=== PATIENT | male | born 1950 | race Caucasian/White ===

== ENCOUNTER 2016-05-01 15:48 | Emergency (ER) | payer MEDICARE ==
[~2016-05-01] VITALS: Ht 180.3 cm; Wt 79.0 kg
[2016-05-01 15:55] VITALS: BP 142/79; PULSE 66; RESP 16; TEMP 98.2; O2SAT 99
--- NOTE | 2016-05-01 16:13 | PD ---
HPI Chief Complaint: Skin Problem Time Seen by Provider: 16:01 Travel History International Travel<30 days: No Contact w/Intl Traveler<30days: No Traveled to known affect area: No History of Present Illness HPI 66-year-old male here for evaluation of left foot and ankle swelling, and erythema. In January 2016 the patient underwent left ankle surgery and had hardware placed. In March of this year he developed an infection which required washout and 6 weeks of antibiotics. Both procedures were performed in [place]. The patient has been going to physical therapy, and over the last week patient has noted increasing swelling and redness to the left foot and ankle. He denies fevers or chills. No history of DVT or PE. No chest pain or dyspnea. He denies pain in his left foot or ankle. [facility] Social History Alcohol Use: Yes (social) Tobacco Use: No Allergies-Medications (Allergen,Severity, Reaction): Coded Allergies: No Known Allergies (Unverified , 05/01/16) Reported Meds & Prescriptions Reported Meds & Active Scripts Active Bactrim DS (Sulfamethoxazole-Trimethoprim) 800-160 Mg Tab 1 Tab PO BID Cipro (Ciprofloxacin HCl) 500 Mg Tab 500 Mg PO BID 10 Days Reported Cialis (Tadalafil) 5 Mg Tab 5 Mg PO DAILY Do not exceed 1 dose/day. Review of Systems Except as stated in HPI: all other systems reviewed are Neg Physical Exam Narrative GENERAL: Well-developed, well-nourished, comfortable, no acute distress. SKIN: Left foot and ankle with significant edema with overlying erythema and warmth, no red streaks, no crepitus. Well-healed surgical scars over left medial and lateral malleolus. HEAD: Atraumatic. Normocephalic. EYES: Pupils equal and round. No scleral icterus. No injection or drainage. ENT: Mucous membranes pink and moist. NECK: Trachea midline. No JVD. CARDIOVASCULAR: Regular rate and rhythm. Bilateral dorsalis pedis pulses are brisk and equal. RESPIRATORY: No accessory muscle use. Clear to auscultation. Breath sounds equal bilaterally. MUSCULOSKELETAL: Left foot and ankle with significant edema with skin exam as above. NEUROLOGICAL: Awake and alert. No obvious cranial nerve deficits. Motor grossly within normal limits. Normal speech. PSYCHIATRIC: Appropriate mood and affect; insight and judgment normal. Data Data Last Documented VS Vital Signs Date Time Temp Pulse Resp B/P Pulse Ox O2 Delivery O2 Flow Rate FiO2 05/01/16 18:57 98.3 66 18 132/72 99 05/01/16 16:27 Room Air Orders Complete Blood Count With Diff (05/01/16 16:08) Comprehensive Metabolic Panel (05/01/16 16:08) Prothrombin Time / Inr (Pt) (05/01/16 16:08) Act Partial Throm Time (Ptt) (05/01/16 16:08) Iv Access Insert/Monitor (05/01/16 16:08) Ecg Monitoring (05/01/16 16:08) Oximetry (05/01/16 16:08) Sodium Chloride 0.9% Flush (Ns Flush) (05/01/16 16:15) Blood Culture (05/01/16 16:08) Westergren Sedimentation Rate (05/01/16 16:08) Ankle, Complete (Lsx1hex) (05/01/16 ) Us Leg Venous Doppler (05/01/16 ) Vancomycin Inj (Vancomycin Inj) (05/01/16 17:15) Ciprofloxacin (Cipro) (05/01/16 18:30) Sulfamet-Trimeth Ds 800-160 Mg (Bactrim (05/01/16 18:30) Labs Laboratory Tests Test 05/01/16 16:15 White Blood Count 6.1 TH/MM3 Red Blood Count 3.97 MIL/MM3 Hemoglobin 12.6 GM/DL Hematocrit 37.3 % Mean Corpuscular Volume 94.0 FL Mean Corpuscular Hemoglobin 31.7 PG Mean Corpuscular Hemoglobin 33.7 % Concent Red Cell Distribution Width 13.3 % Platelet Count 222 TH/MM3 Mean Platelet Volume 8.4 FL Neutrophils (%) (Auto) 65.8 % Lymphocytes (%) (Auto) 23.8 % Monocytes (%) (Auto) 8.6 % Eosinophils (%) (Auto) 1.3 % Basophils (%) (Auto) 0.5 % Neutrophils # (Auto) 4.0 TH/MM3 Lymphocytes # (Auto) 1.5 TH/MM3 Monocytes # (Auto) 0.5 TH/MM3 Eosinophils # (Auto) 0.1 TH/MM3 Basophils # (Auto) 0.0 TH/MM3 CBC Comment DIFF FINAL Differential Comment Erythrocyte Sedimentation Rate 4 mm/hr Prothrombin Time 11.1 SEC Prothromb Time International 1.0 RATIO Ratio Activated Partial 24.8 SEC Thromboplast Time Sodium Level 141 MEQ/L Potassium Level 3.5 MEQ/L Chloride Level 104 MEQ/L Carbon Dioxide Level 30.5 MEQ/L Anion Gap 7 MEQ/L Blood Urea Nitrogen 15 MG/DL Creatinine 0.95 MG/DL Estimat Glomerular Filtration 79 ML/MIN Rate Random Glucose 97 MG/DL Calcium Level 8.3 MG/DL Total Bilirubin 0.5 MG/DL Aspartate Amino Transf 12 U/L (AST/SGOT) Alanine Aminotransferase 16 U/L (ALT/SGPT) Alkaline Phosphatase 95 U/L Total Protein 7.2 GM/DL Albumin 3.9 GM/DL [facility] Medical Decision Making Medical Screen Exam Complete: Yes Emergency Medical Condition: Yes Differential Diagnosis Cellulitis, osteomyelitis, necrotizing fasciitis unlikely, DVT, lymphedema, septic arthritis Narrative Course Vital signs show heart rate 66, blood pressure 142/79, pulse ox 99% on room air , oral temp of 98.2F. CBC shows WBC 6.1, hemoglobin 12.6, hematocrit 37.3, platelets 222. CMP is unremarkable. ESR is 4. Left ankle x-ray: Diffuse soft tissue swelling without fracture. Joint effusion. Left lower extremity duplex: Negative for DVT. Patient was given a dose of IV vancomycin. I was able to speak to the patient' s fuel conversion technician in [place] who knows the patient well. The patient initially had ORIF of the left ankle for nonunion trimalleolar fracture. He developed 2 separate infections in the left ankle, one was an abscess. Both of these infections ground gram-negative organisms that were sensitive to Bactrim and Cipro. At this point the patient does not wish to stay in the hospital. He has no pain in the foot or ankle. His clinical exam is consistent with a cellulitis. Plan is to start him on Bactrim and Cipro. His fuel conversion technician will keep in touch with him over the weekend. Patient was informed on when to return to the emergency department. He verbalizes understanding and agreement with plan. Diagnosis Primary Impression: Cellulitis of left foot Referrals: Traveling Auditor Additional Instructions: Take antibiotics as prescribed. Return to the emergency department for worsening symptoms or any other concerns. Follow-up with your fuel conversion technician when you are able to. Scripts Sulfamethoxazole-Trimethoprim (Bactrim DS)800-160 Mg Tab1 Tab PO BID #20 TAB Ref 0 Prov:Tor Danielle MD 05/01/16 Ciprofloxacin (Cipro)500 Mg Ovn055 Mg PO BID 10 Days Ref 0 Prov:Tor Danielle MD 05/01/16 Disposition: 01 DISCHARGE HOME Condition: Stable Tor Danielle MD May 01, 2016 16:13
[2016-05-01] MEDS ORDERED: SODIUM CHLORIDE 0.9% FLUSH 5 ML FLUSH IVF PRN (16:15)
[2016-05-01] MEDS ORDERED: CIAL5TAB PO (16:16)
[2016-05-01 16:27] VITALS: O2SAT 98
[2016-05-01 16:44] LABS: BASOPHIL % 0.5 % (0.0-2.0); EOSINOPHIL # 0.1 TH/MM3 (0-0.4); EOSINOPHIL % 1.3 % (0.0-4.0); HEMATOCRIT 37.3 % (39.0-51.0); HEMO FLAGS DIFF FINAL; LYMPH % 23.8 % (9.0-44.0); LYMPHOCYTE # 1.5 TH/MM3 (1.0-4.8); MEAN CORPUSCULAR HEMOGLOBIN 31.7 PG (27.0-34.0); MEAN CORPUSCULAR HGB CONC 33.7 % (32.0-36.0); MONO % 8.6 % (0.0-8.0); NEUT % 65.8 % (16.0-70.0); PLATELET COUNT 222 TH/MM3 (150-450); RED BLOOD COUNT 3.97 MIL/MM3 (4.50-5.90); RED CELL DISTRIBUTION WIDTH 13.3 % (11.6-17.2); WHITE BLOOD COUNT 6.1 TH/MM3 (4.0-11.0)
[2016-05-01 16:45] LABS: CHLORIDE 104 MEQ/L (98-107); POTASSIUM 3.5 MEQ/L (3.5-5.1); SODIUM (NA) 141 MEQ/L (136-145)
[2016-05-01 16:49] LABS: ANION GAP 7 MEQ/L (5-15); BICARBONATE 30.5 MEQ/L (21.0-32.0); BLOOD UREA NITROGEN 15 MG/DL (7-18)
[2016-05-01 16:50] LABS: APTT (PATIENT) 24.8 SEC (24.3-30.1); PROTHROMBIN TIME - PATIENT 11.1 SEC (9.8-11.6)
[2016-05-01 16:51] LABS: ALT (GPT) 16 U/L (12-78)
[2016-05-01 16:52] LABS: AST (GOT) 12 U/L (15-37); GLOMERULAR FILTRATION RATE 79 ML/MIN (>89)
[2016-05-01 16:53] LABS: TOTAL BILIRUBIN ADULT 0.5 MG/DL (0.2-1.0)
[2016-05-01 16:55] LABS: ALKALINE PHOSPHATASE 95 U/L (45-117)
--- NOTE | 2016-05-01 17:06 | RADHPO ---
EXAM DATE/TIME: 05/01/2016 16:39 [facility] COMPARISON: No previous studies available for comparison. INDICATIONS : Left ankle redness and swelling. MEDICAL HISTORY : Left ankle fracture SURGICAL HISTORY : ORIF left ankle ENCOUNTER: Initial ACUITY: 1 week PAIN SCORE: 0/10 LOCATION: Left ankle FINDINGS: Diffuse soft tissue swelling is present. There is previous internal fixation of a distal fibular frac ture. 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 There is no evidence of acute fracture. Bony mineralization is normal. CONCLUSION: 1. Diffuse soft tissue swelling without fracture. Joint effusion Aquiles Slaughter MD on May 01, 2016 at 17:02 Board Certified Radiologist. This report was verified electronically.
[2016-05-01] MEDS ORDERED: VANCOMYCIN INJ 1,000 MG in SODIUM CHLOR 0.9% 250 ML INJ 250 ML IV ONE (17:15)
--- NOTE | 2016-05-01 17:32 | RADHPO ---
EXAM DATE/TIME: 05/01/2016 22:11 [facility] COMPARISON: No previous studies available for comparison. INDICATIONS : Left leg swelling. MEDICAL HISTORY : Left ankle fracture. SURGICAL HISTORY : Left ankle repair. ENCOUNTER: Initial ACUITY: 1 week PAIN SCORE: 0/10 LOCATION: Left leg. TECHNIQUE: Venous ultrasound of the leg was performed from the inguinal ligament to the proximal calf. Real-juliann e, color Doppler and spectral tracing, compression and augmentation techniques were used. FINDINGS: There is normal compressibility of the deep venous system from the inguinal region to the proximal ca lf. No echogenic clot is seen in the lumen of the common femoral, femoral, popliteal, and posterior tibial veins. There is a normal response of the venous system to proximal and distal augmentation an d respiration. CONCLUSION: Negative for deep venous thrombosis. . Jim Dhillon MD FACR on May 01, 2016 at 17:31 Board Certified Radiologist. This report was verified electronically.
[2016-05-01] MEDS ORDERED: CIPR-9 PO (18:27)
[2016-05-01] MEDS ORDERED: BACT800T5 PO (18:27)
[2016-05-01] MEDS ORDERED: CIPROFLOXACIN 500 MG TAB PO ONE (18:30)
[2016-05-01] MEDS ORDERED: SULFAMETHOXAZOLE-TRIMETHOPRIM DS 800-160 MG TAB PO ONE (18:30)
[2016-05-01 18:57] VITALS: BP 132/72; TEMP 98.3
== END 2016-05-01 19:05 | disposition home or self-care (01) ==
LOC: PHED 15:48
DX: L03.116 Cellulitis of left lower limb (principal); M25.472 Effusion, left ankle; Z98.890 Other specified postprocedural states
CPT/HCPCS: 73610; 80053; 85025; 85610; 85652; 85730; 87040; 93971; 96365; 99284; J3370; J7050

== ENCOUNTER 2018-04-18 18:52 | Observation (INO) ==
--- NOTE | 2018-04-18 21:06 | XR ---
EXAM DATE: 04/18/2018 8:59 PM EST AGE/SEX: 68 years / Male INDICATIONS: Chest pain. CLINICAL DATA: This is the patient's initial encounter. Patient reports that signs and symptoms have been present for 1 day and indicates a pain score of 3/10. MEDICAL/SURGICAL HISTORY: None. None. COMPARISON: No prior exams available for comparison. FINDINGS: A single AP view of the chest demonstrates the lungs to be symmetrically aerated without evidence of mass, infiltrate or effusion. The cardiomediastinal contours are unremarkable. Osseous structures a re intact. CONCLUSION: The lungs are clear. Electronically signed by: Dario Stephens MD Board Certified Radiologist 04/18/2018 9:05 PM EST
[2018-04-18 21:09] LABS: Baso % (Auto) 0.7 % (0.0-2.0); Eos # (Auto) 0.1 th/mm3 (0.0-0.4); Eos % (Auto) 1.2 % (0.0-4.0); Hematocrit 42.5 % (39.0-51.0); Hemoglobin 13.8 gm/dL (13.0-17.0); Lymph # (Auto) 1.7 th/mm3 (1.0-4.8); Lymph % (Auto) 30.6 % (9.0-44.0); Mean Corpuscular HGB Conc 32.5 % (32.0-36.0); Mean Corpuscular Hemoglobin 31.8 pg (27.0-34.0); Mean Corpuscular Volume 97.7 fL (80.0-100.0); Mean Platelet Volume 9.2 fL (7.0-11.0); Mono # (Auto) 0.4 th/mm3 (0.0-0.9); Mono % (Auto) 7.7 % (0.0-8.0); Neut # (Auto) 3.5 th/mm3 (1.8-7.7); Neut % (Auto) 59.8 % (16.0-70.0); Platelet Count 227 th/mm3 (150-450); Red Blood Count 4.35 mil/mm3 (4.50-5.90); Red Cell Distribution Width 13.9 % (11.6-17.2); White Blood Count 5.7 th/mm3 (4.0-11.0)
[2018-04-18 21:17] LABS: Chloride 104 meq/L (98-107); Potassium 3.5 meq/L (3.5-5.1); Sodium 138 meq/L (136-145)
--- NOTE | 2018-04-18 21:19 | ED ---
HPI General Chief complaint: Arrhythmia / Palpitations Stated complaint: high heart rate on and off Time Seen by Provider: 04/18/18 20:39 Source: patient and family () Mode of arrival: ambulatory Limitations: no limitations History of Present Illness HPI narrative: 68-year-old male here with his for evaluation of intermittent episodes of palpitations, lightheadedness, dizziness that have been occurring over the last 2 months. Patient reports that these episodes have become more frequent and usually last for a couple of minutes. The last episode was [place] He does not ever syncopize during these episodes. He denies any known history of cardiac disease. Currently he feels well and is asymptomatic. He denies ever experiencing chest pain. No new medications. No fevers or recent illness. No paresthesias or motor deficits. At the time of my assessment the patient was on the cardiac monitor technician and he appears to be in a flutter. Patient denies history of atrial flutter or atrial fibrillation or any significant cardiac disease. Related Data Home Medications Medication Instructions Recorded Confirmed sildenafil (antihypertensive) 20 mg PO DAILY 04/18/18 04/18/18 Allergies Allergy/AdvReac Type Severity Reaction Status Date / Time No Known Allergies Allergy Verified 04/18/18 19:04 Review of Systems ROS: all other systems reviewed are negative ON LICENSE OF [facility] Medical History Medical History ACL graft tear (Acute) History of prostate disorder (Acute) Surgical History Surgical History History of ankle surgery (Acute) History of thyroid surgery (Acute) Social History Social History Substance History: No History of Abuse Second Hand Smoke Exposure: No Smoking Status: Never smoker How Often Do You Have a Drink Containing Alcohol: 2 to 3 times a week Recent Travel in [email or web address] within the Last 8 Weeks: No Recent Out of Country Travel within the Last 8 Weeks: No Immunization History Tetanus Immunization: <5 Years Exam Narrative Exam Narrative: GENERAL: Well-developed, well-nourished, pleasant, comfortable, no apparent distress. SKIN: Focused skin assessment warm/dry. HEAD: Atraumatic. Normocephalic. EYES: Pupils equal and round. No scleral icterus. No injection or drainage. ENT: No nasal bleeding or discharge. Mucous membranes pink and moist. NECK: Trachea midline. No JVD. CARDIOVASCULAR: Regular rate and rhythm. RESPIRATORY: No accessory muscle use. Clear to auscultation. Breath sounds equal bilaterally. GASTROINTESTINAL: Abdomen soft, non-tender, nondistended. MUSCULOSKELETAL: No obvious deformities. No clubbing. No cyanosis. No edema. NEUROLOGICAL: Awake and alert. No obvious cranial nerve deficits. Motor grossly within normal limits. Normal speech. PSYCHIATRIC: Appropriate mood and affect; insight and judgment normal. Course Initial Documented Vital Signs Temperature 98.2 F 04/18/18 19:05 Pulse Rate 65 04/18/18 19:05 Respiratory Rate 16 04/18/18 19:05 Blood Pressure 133/74 04/18/18 19:05 Pulse Oximetry 98 04/18/18 19:05 Last Documented Vital Signs Temperature 97.7 F 04/18/18 20:25 Pulse Rate 69 04/18/18 20:25 Respiratory Rate 20 04/18/18 20:25 Blood Pressure 144/86 H 04/18/18 20:25 Pulse Oximetry 100 04/18/18 20:25 Medical Decision Making MDM Narrative Medical decision making narrative: Vital signs reviewed. CBC and CMP are essentially unremarkable. TSH is 3.88. EKG shows atrial flutter with a rate of 68. The patient does not have any known history of cardiac disease, and he was certainly never diagnosed with A. fib or a flutter. I discussed this with the on-call supervisor winding department who recommended that the patient be admitted for an echocardiogram, telemetry monitoring, and cardiology evaluation for determination on how the patient should be anticoagulated. Case discussed with hospitalist Dr. Eagle who will admit the patient to the hospitalist service. Medical Screen Exam Complete: Yes Emergency Medical Condition: Yes Differential Diagnosis Differential Diagnosis: New onset atrial flutter/atrial fibrillation with intermittent episodes of rapid ventricular response, metabolic abnormality, hyperthyroid, PE less likely Lab Data Result diagrams: 04/18/18 20:25 04/18/18 20:25 Lab Results 04/18/18 04/18/18 04/18/18 Range/Units 20:25 20:25 20:25 CBC w Diff Auto diff final WBC 5.7 (4.0-11.0) th/mm3 RBC 4.35 L (4.50-5.90) mil/mm3 Hgb 13.8 (13.0-17.0) gm/dL Hct 42.5 (39.0-51.0) % MCV 97.7 (80.0-100.0) fL MCH 31.8 (27.0-34.0) pg MCHC 32.5 (32.0-36.0) % RDW 13.9 (11.6-17.2) % Plt Count 227 (150-450) th/mm3 MPV 9.2 (7.0-11.0) fL Neut % (Auto) 59.8 (16.0-70.0) % Lymph % (Auto) 30.6 (9.0-44.0) % Terry % (Auto) 7.7 (0.0-8.0) % Eos % (Auto) 1.2 (0.0-4.0) % Baso % (Auto) 0.7 (0.0-2.0) % Neut # (Auto) 3.5 (1.8-7.7) th/mm3 Lymph # (Auto) 1.7 (1.0-4.8) th/mm3 Terry # (Auto) 0.4 (0.0-0.9) th/mm3 Eos # (Auto) 0.1 (0.0-0.4) th/mm3 Baso # (Auto) 0.0 (0.0-0.2) th/mm3 WBC Differential . Differential Comment . PT 10.8 (9.8-11.6) sec INR 1.1 Ratio APTT 25.1 (23.4-31.7) sec Sodium 138 (136-145) meq/L Potassium 3.5 (3.5-5.1) meq/L Chloride 104 (98-107) meq/L Carbon Dioxide 29.9 (21.0-32.0) meq/L Anion Gap 4 L (5-15) meq/L BUN 16 (7-18) mg/dL Creatinine 1.10 (0.60-1.30) mg/dL Estimated GFR 66 L (>89) mL/min Random Glucose 94 (74-106) mg/dL Calcium 8.6 (8.5-10.1) mg/dL Total Bilirubin 0.7 (0.2-1.0) mg/dL AST 40 H (15-37) U/L ALT 43 (12-78) U/L Alkaline Phosphatase 63 (45-117) U/L Total Creatine Kinase 183 (39-308) U/L CK-MB (CK-2) 3.5 (0.5-3.6) ng/mL Troponin I Less than 0.02 L (0.02-0.05) ng/mL Total Protein 7.3 (6.4-8.2) g/dL Albumin 4.2 (3.4-5.0) g/dL TSH 3.880 H (0.358-3.740) uIU/mL Imaging Data Radiologist's impression: Chest X-Ray 04/18/18 20:46 CONCLUSION: The lungs are clear. Discharge Plan Discharge Disposition Patient Disposition: ED Admit(ED Internal Use Only) Discharge Condition Condition: Stable Discharge Details Diagnosis: New onset atrial flutter Physicians Team ED Provider: Tor Danielle Rxs /Orders / Referrals /Forms Prescriptions: No Action sildenafil (antihypertensive) 20 mg Tablet 20 mg PO DAILY RF: 0 Status ED Status: With Doctor
[2018-04-18 21:20] LABS: Calcium 8.6 mg/dL (8.5-10.1)
[2018-04-18 21:21] LABS: Albumin 4.2 g/dL (3.4-5.0); Anion Gap 4 meq/L (5-15); Blood Urea Nitrogen 16 mg/dL (7-18); Carbon Dioxide 29.9 meq/L (21.0-32.0); Glucose,Random 94 mg/dL (74-106)
[2018-04-18 21:22] LABS: Activated Partial Thrombo Time 25.1 sec (23.4-31.7); INR 1.1 Ratio; Prothrombin Time 10.8 sec (9.8-11.6)
[2018-04-18 21:24] LABS: Alanine Aminotransferase 43 U/L (12-78); Aspartate Aminotransferase 40 U/L (15-37); Glomerular Filtration Rate 66 mL/min (>89)
[2018-04-18 21:26] LABS: Total Protein 7.3 g/dL (6.4-8.2)
[2018-04-18 21:27] LABS: Alkaline Phosphatase 63 U/L (45-117); Creatine Kinase 183 U/L (39-308)
[2018-04-18 21:39] LABS: Creatine Kinase MB 3.5 ng/mL (0.5-3.6)
[2018-04-18] MEDS ORDERED: Aspirin 325 MG Tablet PO ONE (21:40)
[2018-04-18] MEDS ORDERED: Bisacodyl 10 MG Supp RECTAL PRN (21:47)
[2018-04-18] MEDS ORDERED: Acetaminophen 325 MG Tablet PO PRN (21:47)
[2018-04-18] MEDS ORDERED: Enoxaparin Inj 80 MG/0.8 ML Syringe SQ SCH (22:00)
[2018-04-19 06:22] LABS: Baso # (Auto) 0.1 th/mm3 (0.0-0.2); Baso % (Auto) 2.5 % (0.0-2.0); Eos # (Auto) 0.2 th/mm3 (0.0-0.4); Eos % (Auto) 4.6 % (0.0-4.0); Hematocrit 40.8 % (39.0-51.0); Hemoglobin 13.4 gm/dL (13.0-17.0); Lymph # (Auto) 1.8 th/mm3 (1.0-4.8); Lymph % (Auto) 43.6 % (9.0-44.0); Mean Corpuscular HGB Conc 32.9 % (32.0-36.0); Mean Corpuscular Volume 97.4 fL (80.0-100.0); Mean Platelet Volume 9.5 fL (7.0-11.0); Mono # (Auto) 0.4 th/mm3 (0.0-0.9); Mono % (Auto) 9.7 % (0.0-8.0); Neut # (Auto) 1.6 th/mm3 (1.8-7.7); Neut % (Auto) 39.6 % (16.0-70.0); Platelet Count 207 th/mm3 (150-450); Red Blood Count 4.19 mil/mm3 (4.50-5.90); White Blood Count 4.1 th/mm3 (4.0-11.0)
[2018-04-19 06:32] LABS: Potassium 3.6 meq/L (3.5-5.1)
[2018-04-19 06:35] LABS: Calcium 8.3 mg/dL (8.5-10.1)
[2018-04-19 06:36] LABS: Carbon Dioxide 29.3 meq/L (21.0-32.0)
--- NOTE | 2018-04-19 07:09 | P.CONCA ---
History of Present Illness Consult date: 04/19/18 Reason for Consult: Atrial flutter Primary Care Provider: JESUS MENEZES Chief Complaint: Palpitations History of Present Illness: The patient is a 68-year-old white male who I am seeing for atrial flutter. He lives most of the year in [place] and came down here late January. He noted in [place] that occasionally he would get fluttering of his heart rate. Since he has been down here, particularly since he has been more active and playing golf, he notes increased palpitations and fast heart rate. These are irregular and associated with shortness of breath when his rate is fast. He has no other cardiac symptomatology, bleeding, stroke or other cardiovascular complaints. EKG on arrival showed controlled atrial flutter with right bundle branch block. Telemetry has shown atrial flutter with slow rates down to 40 a lot of the time but his rate becomes very fast even when he gets up out of bed to go to the bathroom. Family history is unremarkable for cardiovascular disease. He is and does not smoke and just occasionally drinks. Review of Systems All other systems reviewed negative except as stated in HPI Eyes: Reports requires corrective lenses Musculoskeletal: Reports joint pain PMFSH - History History Provided By: Patient - Medical History Medical History: Medical History (Last Updated 04/19/18 @ 07:02 by Sammy Zaragoza MD) ACL graft tear History of prostate disorder Thyroglossal duct cyst - Surgical History Surgical History: Surgical History (Last Updated 04/19/18 @ 07:02 by Sammy Zaragoza MD) History of ankle surgery - Social History I have reviewed the patient's Social History: Yes - Tobacco History Second Hand Smoke Exposure: No Tobacco Use In Past 30 Days: No Smoking Status: Never smoker - Alcohol History How Often Do You Have a Drink Containing Alcohol: 2 to 3 times a week - Substance Use History Substance History: No History of Abuse - Travel History Recent Travel in the [place] Within the Last 8 Weeks: No Recent Travel Out of the Country Within the Last 8 Weeks: No - Immunization History Tetanus Immunization: <5 Years Hx Influenza Vaccine This Season: No Medications and Allergies Active Medications: Active Medications Acetaminophen (Tylenol) 650 mg PO Q4H PRN PRN Reason: Temp > 100.4 Al Hydroxide/Mg Hydroxide (Milk Of Magnesia Liq) 30 ml PO Q12H PRN PRN Reason: Mild Constipation Apixaban (Eliquis) 5 mg PO BID HOME Bisacodyl (Dulcolax Supp) 10 mg RECTAL DAILY PRN PRN Reason: SEVERE CONSITIPATION Lactulose (Lactulose Liq) 30 ml PO DAILY PRN PRN Reason: SEVERE CONSITIPATION Ondansetron HCl (Zofran Inj) 4 mg IV.PUSH Q6H PRN PRN Reason: NAUSEA OR VOMITING Senna/Docusate Sodium (Keila-Colace) 1 tab PO BID HOME Sennosides (Senokot) 17.2 mg PO Q12H PRN PRN Reason: Moderate Constipation Sodium Chloride (Ns Flush) 2 ml IV.FLUSH UNSCH PRN PRN Reason: FLUSH AFTER USING IV ACCESS Sodium Chloride (Ns Flush) 2 ml IV.FLUSH BID HOME Sodium Chloride (Ns Flush) 2 ml IV.FLUSH PRN PRN PRN Reason: FLUSH AFTER USING IV ACCESS Allergies Allergy/AdvReac Type Severity Reaction Status Date / Time No Known Allergies Allergy Verified 04/18/18 19:04 Home Medications Medication Instructions Recorded Confirmed Type sildenafil (antihypertensive) 20 mg PO DAILY 04/18/18 04/18/18 History Exam Vital signs: Vital Signs 04/18/18 19:05 04/18/18 20:25 04/18/18 21:00 Temperature 98.2 F 97.7 F Pulse Rate 65 69 67 Respiratory Rate 16 20 18 Blood Pressure 133/74 144/86 H 135/84 Pulse Oximetry 98 100 04/18/18 21:55 04/19/18 00:00 04/19/18 01:19 Temperature 95.9 F L Pulse Rate 76 76 Respiratory Rate 20 Blood Pressure 134/92 H Pulse Oximetry 100 04/19/18 04:00 Temperature 97.8 F Pulse Rate 66 Respiratory Rate 18 Blood Pressure 124/78 Pulse Oximetry 97 Intake & Output 04/18/18 04/18/18 04/19/18 06:59 18:59 06:59 Output Total 650 / 650 Balance -650 / -650 Weight 78.8 kg Output: Urine 650 / 650 Other: Date of Last Bowel Movement 04/17/18 Weight On Admission 78.8 kg Narrative: CONSTITUTIONAL: A well-developed, well-nourished patient in no apparent distress. EYES: Conjunctiva normal. Sclera nonicteric. Eyelids normal. No xanthelasma. HEENT: Oral mucosa normal without pallor or cyanosis. NECK: JVD less than or equal to 5 cm of water. RESPIRATORY: Breathing is unlabored without accessory muscle use. Normal breath sounds. No wheezes, rales or rubs present. CARDIOVASCULAR: Normal point of maximal impulse. No cardiac thrill present. Irregular rate and rhythm. No murmurs, gallops, rubs or clicks present. PULSES: Carotid arteries: Normal pulses bilaterally without bruits. Palmar arteries: Radial pulses 2+ bilaterally Abdominal aorta: Aortic pulses normal without bruits or enlargement. Femoral arteries: 2+ bilaterally. No bruits present. Pedal pulses: 2+ bilaterally PERIPHERAL CIRCULATION: No cyanosis, clubbing, edema or varicosities present. GASTROINTESTINAL: Normal bowel sounds. Nontender without rigidity or guarding. No masses present. No hepatomegaly. Liver is nontender to palpation and spleen is nonpalpable. Digital rectal exam-not indicated for cardiovascular exam. MUSCULOSKELETAL: No kyphosis or scoliosis present. The patient is not ambulated. Able to undergo rehabilitation. SKIN: Skin turgor is normal. No rashes. NEUROLOGIC: Grossly oriented to person, place and time. Normal mood and appropriate affect. Results 04/19/18 05:20 04/19/18 05:20 Cardiac Enzymes 04/18/18 Range/Units 20:25 AST 40 H (15-37) U/L CK-MB (CK-2) 3.5 (0.5-3.6) ng/mL Troponin I Less than 0.02 L (0.02-0.05) ng/mL Coagulation 04/18/18 Range/Units 20:25 PT 10.8 (9.8-11.6) sec APTT 25.1 (23.4-31.7) sec CBC 04/18/18 04/19/18 Range/Units 20:25 05:20 WBC 5.7 4.1 (4.0-11.0) th/mm3 RBC 4.35 L 4.19 L (4.50-5.90) mil/mm3 Hgb 13.8 13.4 (13.0-17.0) gm/dL Hct 42.5 40.8 (39.0-51.0) % Plt Count 227 207 (150-450) th/mm3 Neut # (Auto) 3.5 1.6 L (1.8-7.7) th/mm3 Lymph # (Auto) 1.7 1.8 (1.0-4.8) th/mm3 Gregg # (Auto) 0.4 0.4 (0.0-0.9) th/mm3 Eos # (Auto) 0.1 0.2 (0.0-0.4) th/mm3 Baso # (Auto) 0.0 0.1 (0.0-0.2) th/mm3 Comprehensive Metabolic Panel 04/18/18 04/19/18 Range/Units 20:25 05:20 Sodium 138 142 (136-145) meq/L Potassium 3.5 3.6 (3.5-5.1) meq/L Chloride 104 106 (98-107) meq/L Carbon Dioxide 29.9 29.3 (21.0-32.0) meq/L BUN 16 13 (7-18) mg/dL Creatinine 1.10 0.94 (0.60-1.30) mg/dL Calcium 8.6 8.3 L (8.5-10.1) mg/dL AST 40 H (15-37) U/L ALT 43 (12-78) U/L Alkaline Phosphatase 63 (45-117) U/L Total Protein 7.3 (6.4-8.2) g/dL Albumin 4.2 (3.4-5.0) g/dL Intake and Output 04/18/18 04/18/18 04/19/18 14:59 22:59 06:59 Output Total 650 / 650 Balance -650 / -650 Output: Urine 650 / 650 Other: Date of Last Bowel Movement 04/17/18 Weight 80.1 kg 78.8 kg Weight On Admission 78.8 kg Patient Weight 04/19/18 06:59 Weight 78.8 kg - Imaging and Cardiology Imaging: Impressions Chest X-Ray 04/18/18 20:46 CONCLUSION: The lungs are clear. Assessment and Plan - Plan Problems: Atrial flutter with tachycardia and bradycardiathe patient most likely has been in atrial flutter for the last 2-3 months. He is only symptomatic with fast heart rates but he has found this more limiting. He has rates down to approximately 40 yet he is very fast just getting up and walking. His only risk factor for embolization is age greater than 65. At this point in time I would recommend the following: Recommendations: Check echocardiogram Hold medication for rate control as we cannot use these given his baseline bradycardia. Switch from Lovenox to Eliquis. I have discussed anticoagulation. The risks/ benefits/alternatives were explained and informed consent obtained. There are no contraindications. I do feel he can benefit from atrial flutter ablation to control his rhythm. He is agreeable. I will put a consult into Dr. Duff and I have notified my office to notify him. We will follow.
--- NOTE | 2018-04-19 08:35 | P.HPIM ---
History of Present Illness Primary Care Physician: JESUS MENEZES Chief Complaint: Palpitations History of Present Illness: This is a 68-year-old male patient with a known medical history of hypertension who presented to the ED for evaluation of intermittent episodes of palpitations, lightheadedness and dizziness that have been occurring on and off for the last 2 months. He states that the episodes have become more frequent over the past couple months as well. He denies any history of cardiac disease. Denies any recent illness including fever, chills, cough, headache, chest pain, abdominal pain, nausea, vomiting, diarrhea or dysuria. Denies any new medications. Denies any sick contacts. He states that he is never had a syncopal episode with the symptoms. Does not follow with a cable maintainer. Denies any history of palpitations in the past. Patient is very active and expresses concern regarding continuing these activities with atrial flutter. Review of Systems Review of Systems: all other systems reviewed are negative [facility] Medical History Medical History ACL graft tear (Acute) History of prostate disorder (Acute) Thyroglossal duct cyst (Acute) Surgical History Surgical History History of ankle surgery (Acute) Social History Social History Substance History: No History of Abuse Second Hand Smoke Exposure: No Smoking Status: Never smoker How Often Do You Have a Drink Containing Alcohol: 2 to 3 times a week Recent Travel in [facility] within the Last 8 Weeks: No Recent Out of Country Travel within the Last 8 Weeks: No Immunization History Tetanus Immunization: <5 Years Hx Influenza Vaccine This Season: No Medications and Allergies Allergies Allergy/AdvReac Type Severity Reaction Status Date / Time No Known Allergies Allergy Verified 04/18/18 19:04 Home Medications Medication Instructions Recorded Confirmed Type sildenafil (antihypertensive) 20 mg PO DAILY 04/18/18 04/18/18 History Active Medications: Active Medications Acetaminophen (Tylenol) 650 mg PO Q4H PRN PRN Reason: Temp > 100.4 Al Hydroxide/Mg Hydroxide (Milk Of Kim Liq) 30 ml PO Q12H PRN PRN Reason: Mild Constipation Apixaban (Eliquis) 5 mg PO BID HOME Bisacodyl (Dulcolax Supp) 10 mg RECTAL DAILY PRN PRN Reason: SEVERE CONSITIPATION Lactulose (Lactulose Liq) 30 ml PO DAILY PRN PRN Reason: SEVERE CONSITIPATION Ondansetron HCl (Zofran Inj) 4 mg IV.PUSH Q6H PRN PRN Reason: NAUSEA OR VOMITING Senna/Docusate Sodium (Keila-Colace) 1 tab PO BID [facility] Sennosides (Senokot) 17.2 mg PO Q12H PRN PRN Reason: Moderate Constipation Sodium Chloride (Ns Flush) 2 ml IV.FLUSH BID HOME Sodium Chloride (Ns Flush) 2 ml IV.FLUSH PRN PRN PRN Reason: FLUSH AFTER USING IV ACCESS Physical Exam Vital signs: Vital Signs 04/18/18 19:05 04/18/18 20:25 04/18/18 21:00 Temperature 98.2 F 97.7 F Pulse Rate 65 69 67 Respiratory Rate 16 20 18 Blood Pressure 133/74 144/86 H 135/84 Pulse Oximetry 98 100 04/18/18 21:55 04/19/18 00:00 04/19/18 01:19 Temperature 95.9 F L Pulse Rate 76 76 Respiratory Rate 20 Blood Pressure 134/92 H Pulse Oximetry 100 04/19/18 04:00 04/19/18 07:47 Temperature 97.8 F Pulse Rate 66 Respiratory Rate 18 Blood Pressure 124/78 Pulse Oximetry 97 96 Intake & Output 04/18/18 04/19/18 04/19/18 18:59 06:59 18:59 Output Total 650 / 650 Balance -650 / -650 Weight 78.8 kg Output: Urine 650 / 650 Other: Date of Last Bowel Movement 04/17/18 Weight On Admission 78.8 kg Narrative: GENERAL: Well-developed, well-nourished patient in [facility]. SKIN: Warm and dry. No rash. HEAD: Normocephalic. Atraumatic. EYES: Pupils equal and round. No scleral icterus. No injection or drainage. ENT: No nasal bleeding or discharge. Mucous membranes pink and moist. NECK: Supple. Trachea midline. CARDIOVASCULAR: Regular rate and rhythm. S1, S2 noted. No murmur appreciated. RESPIRATORY: No accessory muscle use. Clear to auscultation. Breath sounds equal bilaterally. GASTROINTESTINAL: Abdomen soft, non-tender, nondistended. Normoactive bowel sounds x4. MUSCULOSKELETAL: No obvious deformities. Extremities without clubbing, cyanosis , or edema. NEUROLOGICAL: Awake and alert. No obvious cranial nerve deficits. Motor grossly within normal limits. 5/5 muscle strength in bilateral upper and lower extremities. Normal speech. PSYCHIATRIC: Appropriate mood and affect; insight and judgment normal. Results Labs CBC & Chem 7: 04/19/18 05:20 04/19/18 05:20 Imaging Impressions Chest X-Ray 04/18/18 20:46 CONCLUSION: The lungs are clear. Caprini VTE Risk Assessment Caprini VTE Risk Assessment: Moderate/High Risk (score >= 2) Caprini Risk Assessment Model: Point Value = 1 Point Value = 2 Point Value = 3 Point Value = 5 Age 41-60 Minor surgery BMI > 25 kg/m2 Swollen legs Varicose veins or History of unexplained or recurrent spontaneous Oral contraceptives or hormone replacement Sepsis (< 1 month) Serious lung disease, including pneumonia (< 1 month) Abnormal pulmonary function Acute myocardial infarction Congestive heart failure (< 1 month) History of inflammatory bowel disease Medical patient at bed rest Age 61-74 Arthroscopic surgery Major open surgery (> 45 min) Laparoscopic surgery (> 45 min) Malignancy Confined to bed (> 72 hours) Immobilizing plaster cast Central venous access Age >= 75 History of VTE Family history of VTE Factor V Leiden Prothrombin [id number] Lupus anticoagulant Anticardiolipin antibodies Elevated serum homocysteine Heparin-induced thrombocytopenia Other congenital or acquired thrombophilia Stroke (< 1 month) Elective arthroplasty Hip, pelvis, or leg fracture Acute spinal cord injury (< 1 month) Prophylaxis Regimen: Total Risk Factor Score Risk Level Prophylaxis Regimen 0-1 Low Early ambulation 2 Moderate Order ONE of the following: *Sequential Compression Device (SCD) *Heparin 5000 units SQ BID 3-4 Higher Order ONE of the following medications: *Heparin 5000 units SQ TID *Enoxaparin/Lovenox 40 mg SQ daily (WT < 150 kg, CrCl > 30 mL/min) *Enoxaparin/Lovenox 30 mg SQ daily (WT < 150 kg, CrCl > 10-29 mL/min) *Enoxaparin/Lovenox 30 mg SQ BID (WT < 150 kg, CrCl > 30 mL/min) AND/OR *Sequential Compression Device (SCD) 5 or more Highest Order ONE of the following medications: *Heparin 5000 units SQ TID (Preferred with Epidurals) *Enoxaparin/Lovenox 40 mg SQ daily (WT < 150 kg, CrCl > 30 mL/min) *Enoxaparin/Lovenox 30 mg SQ daily (WT < 150 kg, CrCl > 10-29 mL/min) *Enoxaparin/Lovenox 30 mg SQ BID (WT < 150 kg, CrCl > 30 mL/min) AND *Sequential Compression Device (SCD) Assessment and Plan Plan This is a 68-year-old male patient with a known medical history of hypertension who presented the ED with complaints of palpitations, lightheadedness and dizziness times 2 months. Atrial flutter with tachycardia and bradycardia -Complaints of palpitations with associated lightheadedness and dizziness for 2 months now. -Denies any history of coronary artery disease or arrhythmias in the past. -Continued on cardiac telemetry overnight, no arrhythmias were noted. -Cardiology has been consulted and seen patient, started on Eliquis. At this time a cardiac ablation for rate control may be beneficial per cardiology recommendations, Dr. Duff has been consulted. Awaiting input. -Patient does have bradycardia, at this time unable to start an antiarrhythmic. -CBC and BMP reviewed, essentially unremarkable. -Chest x-ray reviewed showing no acute cardiopulmonary disease. -Will await echocardiogram results. -Further hospitalization will depend on Dr. Duff. Hypertension -Patient does take sildenafil at home, will continue. Continue to monitor blood pressure trends. DVT prophylaxis: SCDs. Eliquis. D/w patient, patient's , bedside RN, Dr. Bender. H&P: Quality VTE Deep Vein Thrombosis/Pulmonary Embolism Present on Admission: No
[2018-04-19] MEDS: Senna/Docusate Sodium 8.6/50 MG Tablet PO SCH ×2 (10:12→21:33)
[2018-04-19] MEDS ORDERED: Metoprolol Tartrate 25 MG Tablet PO ONE (13:09)
[2018-04-19] MEDS ORDERED: Chlorhexidine Gluconate 2% 1 Pack (2 Cloths) TOPICAL ONE (13:09)
[2018-04-19] MEDS ORDERED: LORazepam 1 MG Tablet SL PRN (13:17)
[2018-04-19] MEDS ORDERED: Sodium Chlor 0.9% Inj 500 ML IV.CONT SCH ×2 (14:00)
[2018-04-19] MEDS ORDERED: Sodium Chlor 0.9% Inj 500 ML IV.SIG ONE (14:00)
--- NOTE | 2018-04-19 14:23 | ECG ---
Date Performed: 04/18/2018 Time Performed: 20:47:54 PTAGE: 68 years EKG: ATRIAL FLUTTER/TACHYCARDIA RIGHT BUNDLE BRANCH BLOCK ABNORMAL ECG NO PREVIOUS TRACING DOCTOR: Asim Murphy Interpretating Date/Time 04/19/2018 14:21:03
--- NOTE | 2018-04-19 17:23 | ECHRPT ---
Indication: Atrial Fib and Flutter CONCLUSIONS Normal left ventricular size. Wall thickness is measured at the upper limits of normal. The left ventricular systolic function is normal with an estimated ejection fraction in the range of 55-60%. Trace mitral valve regurgitation. There is trace tricuspid valve regurgitation. The estimated pulmonary arterial pressure is 39 mmHg. BP: / HR: Rhythm: MEASUREMENTS (Male / Female) Normal Values Technical Quality:Fair 2D ECHO LV Diastolic Diameter PLAX 4.3 cm 4.2 - 5.9 / 3.9 - 5.3 cm LV Systolic Diameter PLAX 3.0 cm IVS Diastolic Thickness 1.1 cm 0.6 - 1.0 / 0.6 - 0.9 cm LVPW Diastolic Thickness 1.1 cm 0.6 - 1.0 / 0.6 - 0.9 cm LV Relative Wall Thickness 0.5 RV Internal Dim ED PLAX 2.8 cm LVOT Diameter 2.1 cm Aortic Root Diameter 3.2 cm LA Systolic Diameter LX 3.2 cm 3.0 - 4.0 / 2.7 - 3.8 cm M-MODE AV Cusp Separation MM 2.1 cm DOPPLER Mitral E Point Velocity 99.7 cm/s LV E' Lateral Velocity 7.8 cm/s Mitral E to LV E' Lateral Ratio 12.8 LV E' Septal Velocity 12.2 cm/s Mitral E to LV E' Septal Ratio 8.2 TR Peak Velocity 270.0 cm/s TR Peak Gradient 29.2 mmHg Right Atrial Pressure 10.0 mmHg Pulmonary Artery Systolic Pressu 39.2 mmHg Right Ventricular Systolic Press 39.2 mmHg PV Peak Velocity 97.7 cm/s PV Peak Gradient 3.8 mmHg FINDINGS LEFT VENTRICLE Normal left ventricular size. Wall thickness is measured at the upper limits of normal. The left ventricular systolic function is normal with an estimated ejection fraction in the range of 55-60%. RIGHT VENTRICLE Normal right ventricular size and systolic function. LEFT ATRIUM The left atrial size is normal. RIGHT ATRIUM The right atrial size is normal. ATRIAL SEPTUM Normal atrial septal thickness without atrial level shunting by limited color doppler interrogation. AORTA The aortic root and proximal ascending aorta are normal in size on limited imaging. MITRAL VALVE Structurally normal mitral valve. Trace mitral valve regurgitation. No mitral valve stenosis. AORTIC VALVE Trileaflet aortic valve. No aortic valve stenosis or regurgitation. TRICUSPID VALVE There is trace tricuspid valve regurgitation. The estimated pulmonary arterial pressure is 39 mmHg. PULMONARY VALVE No pulmonary valve regurgitation or stenosis. VESSELS The inferior vena cava is normal in size. PERICARDIUM No pericardial effusion. Amador Salinas (Electronically Signed) Final Date:19 April 2018 17:22
[2018-04-19] MEDS ORDERED: Heparin/NS PF Inj 500 ML ONE (18:42)
[2018-04-19] MEDS ORDERED: fentaNYL Citrate Inj 100 MCG/2 ML Ampul ONE (18:43)
[2018-04-19] MEDS ORDERED: Isoproterenol HCl Inj 0.2 MG/ML Ampul ONE ×2 (19:13→19:32)
--- NOTE | 2018-04-19 19:53 | CATHPROC ---
[employer] HIS Report Study Information Study Number Admission Scheduled Start Study Start [id number] Apr 18 2018 9:48PM 04/19/2018 Apr 19 2018 6:29PM [facility] Cardiac Catheterization Admit Source Facility Department Emergency department [facility] - Creel Clerk Physician and Clinical Staff Initial Dandre Waldron Forestry Foreman Alma Frank RCIS Forestry Foreman Kelly Amin,TERRY Recorder Fina Celment,RT(R) TECH2 David Henderson,RT(R) Equipment Time Switchboard Troubleshooter Description Size Mfg Part Number Used/Scraped BIOSENSE OROZCO CATHETER, CELSIUS DS, 8MM, F [id number] 19:18 FR 7 Used INC. TYPE QUAD *[id number] 18:45 [facility] BLANKET,WARM AIR CCL * Used *[id number] 18:45 [facility] PACK, CCL CUSTOM * Used *[id number] 18:45 [employer] PACER GODOY, LIMB * 2530 *[id number] Used [id number] 18:46 [employer] CATHETER, JSN, QUAD FR 5 Used *[id number] 18:46 [employer] CATHETER, JSN, QUAD FR 5 Used *[id number] 18:46 [employer] CATHETER, JSN, QUAD FR 5 Used *[id number] 18:46 [employer] CATHETER, JSN, QUAD FR 5 Used *[id number] 18:45 [employer] MED[employer] ELECTRODE KIT, CYRUS X SURFACE * Used *[id number] 18:46 [employer] SHEATH, EPS, FR5 FAST CATH FR 5 Used *[id number] 18:46 [employer] SHEATH, EPS, FR5 FAST CATH FR 5 Used *[id number] 18:46 [employer] SHEATH, EPS, FR5 FAST CATH FR 5 Used *[id number] 18:46 [employer] SHEATH, EPS, FR6 FAST CATH FR 6 Used *[id number] 18:46 [employer] SHEATH, EPS, FR8 FAST CATH FR 8 Used *[id number] [facility] PAD, ELECTROSURGICAL 18:45 * [id number] *[id number] Used SURGICAL GROUNDING (BLUE) Labs Hgb (g/dl) Hct (%) WBC (l/cumm) Platelets (thousands) 11.60-17.00 35.00-51.00 4.00-11.00 150.00-450.00 13.0 40 4.4 142 Glucose (mg/dl) BUN (mg/dl) Creatinine (mg/dl) BUN:Creatinine (1:x) 74.00-106.00 7.00-18.00 0.50-1.30 10.00-20.00 86 13 0.9 14.4 Na (meq/l) K (meq/l) 136.00-145.00 3.50-5.10 142 3.6 Medication Medication Total Dose (Bolus/Oral) Medication Total Dosage/Unit 1% XYLOCAINE 40 mL FENTANYL 100 mcg VERSED 2 mg ZOFRAN 4 mg Medications (Bolus/Oral) Medication Time Given Dosage/Unit Administered By Reason VERSED 04/19/2018 7:08:00 PM 2 mg Mrache, Kelly 2 mg VERSED given by Kelly Amin RN via Peripheral IV. FENTANYL 04/19/2018 7:09:40 PM 50 mcg Mrache, Kelly 50 mcg FENTANYL given by Kelly Amin RN via Peripheral IV. Ordered by Dandre Duff. ZOFRAN 04/19/2018 7:11:50 PM 4 mg Mrache, Kelly 4 mg ZOFRAN given by Kelly Amin RN via Central IV. Ordered by Dandre Duff. 1% XYLOCAINE 04/19/2018 7:14:49 PM 20 mL Dandre Duff 20 mL 1% XYLOCAINE given by Dandre Duff via Subcutaneous. Ordered by Dandre Duff. 1% XYLOCAINE 04/19/2018 7:17:24 PM 20 mL Dandre Duff 20 mL 1% XYLOCAINE given by Dandre Duff via Subcutaneous. Ordered by Dandre Duff. FENTANYL 04/19/2018 7:18:31 PM 50 mcg Mrache, Kelly 50 mcg FENTANYL given by Kelly Amin RN via Peripheral IV. Ordered by Dandre Duff. Medication (Drip) Medication Time Given Dosage/Unit Concentration/Unit Diluent (ml) Solution ISUPREL 04/19/2018 7:30:10 PM 10 mcg/min 1 mg 250 NaCl .9 10 mcg/min ISUPREL given by Kelly Amin, TERRY via Peripheral IV. Pump/Drip Flow = 150 ml/hr using NaCl .9 with a concentration of 1 mg in 250 ml. Ordered by Dandre Duff. Chronological Log Time Study Chronological Log 18:39:12 Patient arrived via Bed. 18:44:41 Patient Name, D.O.B, / Armband Verified By R.N. 18:44:42 Consent signed by the physician and the patient and verified by the [facility] staff. 18:44:42 Pre-op and post- op instructions given; patient acknowledges understanding of instructions. 18:44:43 Verbal Stimulation=2 Physical Stimulation=2 Airway=2 Respiration=2 TOTAL=8. (0=absent, 1=li mited, 2=present) 18:46:30 Presedation assessment performed by Creel Clerk RN. 18:46:31 Patient has been NPO for More than 6Hrs. 18:46:32 Skin Breakdown/none per pt 18:46:41 Patient Warmer Placed on the Table. 18:46:42 Disposable Defibrillator Pads Placed On Patient. 18:46:42 Christopher Prominences Protected 18:46:46 History and physical on the chart or being dictated. Vitals capture started with the following parameters, Patient=Adult, Interval=5 min, Initial Pr ksgmnw=005 mmHg, 18:47:29 Deflation Rate=5 mmHg 18:48:08 HR=98 bpm, RAJM=415/88 mmhg, TyA4=900.0 %, Resp=16 B/min, Pain=0, Hiram=10, Patton=2 18:53:05 HR=97 bpm, CTMO=191/88 mmhg, SpO2=99.0 %, Resp=16 B/min, Hiram=10 18:57:01 Bilateral groins prepped with 2% chlorhexidine, and draped after a 3 minute waiting time. 18:58:04 HR=83 bpm, CJWX=479/88 mmhg, JqN5=783.0 %, Pain=0, Hiram=10, Patton=2 19:03:05 HR=90 bpm, ZEVH=736/83 mmhg, OaS8=795.0 %, Pain=0, Hiram=10, Patton=2 19:05:41 Reference ECG taken 19:08:00 2 mg VERSED given by Kelly Amin RN via Peripheral IV. 19:08:47 HR=89 bpm, GXNF=634/79 mmhg, BaK9=114.0 %, Pain=0, Hiram=10, Patton=2 19:09:40 50 mcg FENTANYL given by Kelly Amin RN via Peripheral IV. Ordered by Dandre Duff. 19:11:50 4 mg ZOFRAN given by Kelly Amin RN via Central IV. Ordered by Dandre Duff. Time Out. Correct patient, correct procedure, correct physician, labs, allergies, and equipment verified with [facility] laboratory 19:12:36 team present. Fire risk assesment completed (see hard stop sheet for coding). Time Out Conc urred by MD and individual staff in procedure. 19:12:40 Case Start 19:13:09 HR=89 bpm, MYZL=404/78 mmhg, EyK7=306.0 %, Pain=0, Hiram=10, Patton=2 19:14:49 20 mL 1% XYLOCAINE given by Dandre Duff via Subcutaneous. Ordered by Dandre Duff. 19:15:02 Access site was Left Femoral Vein. 19:15:27 Access site was Left Femoral Vein. 19:15:29 Access site was Left Femoral Vein. 19:15:36 Access site was Left Femoral Vein. 19:15:46 A SHEATH, EPS, FR5 FAST CATH FR 5 was advanced into the Fem Vein (left) using the Percutane ous technique. 19:16:07 A SHEATH, EPS, FR5 FAST CATH FR 5 was advanced into the Fem Vein (left) using the Percutane ous technique. 19:16:25 A SHEATH, EPS, FR5 FAST CATH FR 5 was advanced into the Fem Vein (left) using the Percutane ous technique. 19:16:29 A SHEATH, EPS, FR6 FAST CATH FR 6 was advanced into the Fem Vein (left) using the Percutane ous technique. 19:17:24 20 mL 1% XYLOCAINE given by Dandre Duff via Subcutaneous. Ordered by Dandre Duff. 19:17:31 Access site was Right Femoral Vein. 19:18:26 A SHEATH, EPS, FR8 FAST CATH FR 8 was advanced into the Fem Vein (right) using the Percutan eous technique. 19:18:31 50 mcg FENTANYL given by Kelly Amin RN via Peripheral IV. Ordered by Dandre Duff. 19:18:51 HR=88 bpm, DHVX=860/76 mmhg, IiA3=578.0 %, Pain=0, Hiram=10, Patton=2 A CATHETER, JSN, QUAD FR 5 was advanced vis RA and placed in the HRA. Placement was visually co nfirmed under 19:20:00 fluoroscopy. A CATHETER, JSN, QUAD FR 5 was advanced vis RA and placed in the HIS. Placement was visually co nfirmed under 19:20:30 fluoroscopy. A CATHETER, JSN, QUAD FR 5 was advanced vis RA and placed in the CS. Placement was visually con firmed under 19:20:31 fluoroscopy. A CATHETER, JSN, QUAD FR 5 was advanced vis RA and placed in the RVA. Placement was visually co nfirmed under 19:20:55 fluoroscopy. A CATHETER, CELSIUS DS, 8MM, F TYPE QUAD FR 7 was advanced vis RA and placed in the ~EPS SITES~. Placement 19:20:57 was visually confirmed under fluoroscopy. 19:21:23 ablation started 19:23:44 HR=80 bpm, DVEZ=905/93 mmhg, PzT2=444.0 %, Pain=0, Hiram=10, Patton=2 19:28:13 HR=83 bpm, MGZT=589/95 mmhg, SwT2=258.0 %, Pain=0, Hiram=10, Patton=2 19:30:00 ablation stoped 10 mcg/min ISUPREL given by Kelly Amin, TERRY via Peripheral IV. Pump/Drip Flow = 150 ml/hr using NaCl .9 with 19:30:10 a concentration of 1 mg in 250 ml. Ordered by Dandre Duff. 19:32:14 HR=79 bpm, YtE0=142 % 19:32:18 Vitals capture stopped. Vitals capture started with the following parameters, Patient=Adult, Interval=3 min, Initial Pr ccfxfa=269 mmHg, 19:32:43 Deflation Rate=5 mmHg 19:33:22 HR=86 bpm, WTBK=619/64 mmhg, SpO2=98.0 %, Pain=0, Hiram=10, Patton=2 19:36:14 XJ=292 bpm, UJCF=205/55 mmhg, SpO2=99.0 %, Pain=0, Hiram=10, Patton=2 19:36:51 isoprel discontinued 19:37:33 Case End (Physician broke scrub) 19:37:58 Catheter(s) removed without difficulty 19:39:15 Sheath removed; pressure applied to access site. 19:39:57 HR=92 bpm, DMSC=888/70 mmhg, SpO2=99.0 %, Pain=0, Hiram=10, Patton=2 19:42:25 HR=92 bpm, OLGP=373/76 mmhg, TyF9=378.0 %, Pain=0, Hiram=10, Patton=2 19:43:05 Bedside Report will be given. 19:45:23 ZP=012 bpm, WMYA=073/72 mmhg, CiI4=398.0 %, Pain=0, Hiram=10, Patton=2 19:48:21 XPVV=848/80 mmhg, Pain=0, Hiram=10, Patton=2 19:50:09 Vitals capture stopped. 19:50:33 groin area was good , no hematoma was observed End Study - Contrast Media Used In Study Contrast Total Opened (mL) Total Used (mL) Total Wasted (mL) Omnipaque 350 0 0 0 End Study - Maximum Contrast Load Max Contrast Load (mL) 437.9 End Study - Radiation Exposure Fluoro Time Fluoro Dose (mGy) Cine Dose (uGym2) (minutes) 2.8 17 203 End Study - Patient Disposition Complications Transferred To Telemetry Bed
--- NOTE | 2018-04-20 08:12 | MB ---
cc: Dandre Duff MD DATE: 04/19/2018 REASON FOR CONSULTATION: Atrial flutter, unable to control with medication. HISTORY OF PRESENT ILLNESS: Mr. Guerrero is a 68-year-old well-appearing man with a history of atrial flutter, recent hospitalization due to tachyarrhythmia and shortness of breath. He was found with atrial flutter, rate controlled. I was consulted for evaluation and management. The chart was reviewed. The patient was evaluated. ALLERGIES: NONE. SOCIAL HISTORY: This gentleman currently denies smoking and drinking. FAMILY HISTORY: Noncontributory to his current medical condition. MEDICATIONS: He is on Eliquis 5 mg twice a day. He is on Zofran and acetaminophen. REVIEW OF SYSTEMS: The patient with shortness of breath on activity and palpitation, but no chest pain or chest discomfort. PHYSICAL EXAMINATION: GENERAL: Alert, fully oriented. VITAL SIGNS: His blood pressure on evaluation 134/95, pulse oximetry is 79, respiratory rate 18. LUNGS: Ventilated. CARDIOVASCULAR: S1, S2, irregular. ABDOMEN: Soft. No mass. No bruits. EXTREMITIES: No edema. DIAGNOSTIC DATA: Electrocardiogram: Atrial flutter diffuse ST changes. Labs: Hemoglobin is 13.4, white blood cell 4.1. INR 1.1. Potassium 3.6, creatinine 0.94. TSH 3.88. Troponin less than 0.02. ASSESSMENT AND RECOMMENDATIONS: Mr. Guerrero has atrial flutter, symptomatic. He is on anticoagulation. Electrophysiology study and ablation discussed. The risks, the nature, and the benefits of the procedure are clearly stated to him. Risks include pneumothorax, cardiac perforation, stroke, and even . He understands and agreed to proceed. Procedure will be performed during hospitalization. Dandre Duff MD HS/rs , 07:48 AM , 07:56 AM
[2018-04-20 09:35] VITALS: RESP 18
--- NOTE | 2018-04-20 09:46 | MA ---
cc: Dandre Duff MD DATE: 04/19/2018 PROCEDURE: Electrophysiology study, CS cannulation, 3-D mapping, radiofrequency ablation of atrial flutter, and conscious sedation. INDICATIONS: Mr. Guerrero is a 68-year-old gentleman with atrial flutter, symptomatic on anticoagulation referred for electrophysiology study and ablation. The risks, the nature, and the benefits of the procedure were clearly stated to him. Risks include pneumothorax, cardiac perforation, stroke, and even . The patient understood and agreed to proceed. DESCRIPTION OF PROCEDURE: After written informed consent was obtained, the patient was brought to the EP lab where he was prepped and draped in the usual sterile fashion. Conscious sedation was initiated and maintained throughout the procedure by the anesthesiologist using intravenous Versed and intravenous fentanyl. Once sedation was verified, the right and left inguinal area were anesthetized with 2% Xylocaine. Using modified Seldinger, the left femoral vein was cannulated on 2 occasions. Three guidewires were advanced over the wire, three 5-Turkmen Hemaquet wires advanced. The right femoral vein was cannulated on 2 occasions and 2 guidewires were advanced over the wire, 6 and an 8-Turkmen Hemaquet were advanced. Then, under fluoroscopic guidance through the 5 and 6-Turkmen Hemaquet, four 5-Turkmen Chad curved quadripolar electrophysiologic catheters were advanced and placed in the His, right atrium, coronary sinus, and right ventricular apex. Basic intervals were measured. The patient was in atrial flutter. Flutter cycle length was around 240 milliseconds. Then, through the 8-Turkmen Hemaquet, a Cordis Michael F-curve 8 mm mapping and radiofrequency ablation catheter was advanced. Using the [employer] Endocardial Solution Mapping system, a 3-dimensional configuration of the right atrium was obtained. Then, the catheter was placed at the critical isthmus. Radiofrequency energy was delivered. During ablation, cycle length prolonged and subsequently he converted into sinus rhythm. Further burn was delivered. Then, placing lateral short length activation to the area of the His compared to the does not indicate line of block. Then, atrial pacing protocol was performed at the coronary sinus up to 200 milliseconds cycle length. No tachyarrhythmia was induced. Isuprel infusion at 10 mcg. No tachyarrhythmia was induced. Post-isuprel, no tachyarrhythmia was induced. At that point, the procedure was complete. All catheters removed. The patient is going to be transferred to the recovery room. No incident to report. The patient tolerated the procedure. Blood loss minimal. Sedation time in is over an hour and a half. 1. ELECTROCARDIOGRAM: At baseline, the patient was in atrial flutter. Postprocedure, the patient in sinus rhythm. 2. BASIC INTERVAL: Basic interval was around 600 millisecond. Post ablation, he was around 960 milliseconds. The AH was 90, and HV was around 42 milliseconds. 3. ATRIAL PACING PROTOCOL: Flutter was entrained and ablated. Post-ablation atrial flutter was not induced. Wenckebach of the node was around 430 milliseconds. No tachyarrhythmia was induced. 4. TACHYARRHYTHMIA: Atrial flutter was mapped and ablation was successful. CONCLUSION: Successful electrophysiology study, mapping, and radiofrequency ablation of atrial flutter. RECOMMENDATION: The patient is going to be transferred to the telemetry unit. He will be observed. When stable, can be discharged home. MD ALICIA Trent/[email or web address] , 07:54 AM , 08:04 AM
--- NOTE | 2018-04-20 10:55 | P.PNIM ---
Subjective Interval history: Patient is feeling well. Denies any chest pain or shortness of breath. Physical Exam Vital signs: Vital Signs 04/19/18 19:18 04/19/18 20:00 04/19/18 20:13 Temperature 98 F Pulse Rate 79 66 74 Respiratory Rate 20 Blood Pressure 134/76 136/81 Pulse Oximetry 100 100 04/19/18 20:28 04/19/18 20:58 04/19/18 21:28 Temperature Pulse Rate 66 64 73 Respiratory Rate Blood Pressure 124/66 122/79 131/81 Pulse Oximetry 04/19/18 21:58 04/19/18 22:28 04/19/18 23:28 Temperature 98.4 F Pulse Rate 66 69 75 Respiratory Rate 20 Blood Pressure 133/82 118/70 105/68 Pulse Oximetry 100 04/20/18 01:00 04/20/18 02:00 04/20/18 03:00 Temperature Pulse Rate 68 71 78 Respiratory Rate Blood Pressure 103/70 92/56 L 96/57 L Pulse Oximetry 04/20/18 03:38 04/20/18 04:00 04/20/18 04:38 Temperature 97.7 F Pulse Rate 65 73 66 Respiratory Rate 20 Blood Pressure 111/68 Pulse Oximetry 100 04/20/18 05:38 04/20/18 06:00 04/20/18 07:00 Temperature Pulse Rate 62 62 62 Respiratory Rate Blood Pressure Pulse Oximetry 04/20/18 08:00 04/20/18 09:00 Temperature 98.6 F Pulse Rate 60 64 Respiratory Rate 18 Blood Pressure 114/70 Pulse Oximetry 98 Intake & Output 04/19/18 04/20/18 04/20/18 18:59 06:59 18:59 Intake Total 480 / 480 240 / 240 Output Total 480 / 480 Balance 0 / 0 240 / 240 Weight 78.6 kg Intake: Oral 480 / 480 240 / 240 Output: Urine 480 / 480 Other: # Voids 1 Narrative: GENERAL: Sitting up in bed. Appears comfortable. Alert and oriented x4. SKIN: Warm and dry. HEAD: Normocephalic. EYES: No scleral icterus. No injection or drainage. NECK: Supple, trachea midline. No JVD or lymphadenopathy. CARDIOVASCULAR: Regular rate and rhythm without murmurs, gallops, or rubs. RESPIRATORY: Breath sounds equal bilaterally. No accessory muscle use. GASTROINTESTINAL: Abdomen soft, non-tender, nondistended. MUSCULOSKELETAL: No cyanosis, or edema. Results Labs CBC & Chem 7: 04/19/18 05:20 04/19/18 05:20 Assessment and Plan Plan This is a 68-year-old male patient with a known medical history of hypertension who presented the ED with complaints of palpitations, lightheadedness and dizziness times 2 months. //Atrial flutter with tachycardia and bradycardia -Complaints of palpitations with associated lightheadedness and dizziness for 2 months now. -Denies any history of coronary artery disease or arrhythmias in the past. -Continued on cardiac telemetry overnight, no arrhythmias were noted. -Cardiology has been consulted and seen patient, started on Eliquis. At this time a cardiac ablation for rate control may be beneficial per cardiology recommendations, Dr. Duff has been consulted. Awaiting input. -Patient does have bradycardia, at this time unable to start an antiarrhythmic. -CBC and BMP reviewed, essentially unremarkable. -Chest x-ray reviewed showing no acute cardiopulmonary disease. -Will await echocardiogram results. -Further hospitalization will depend on Dr. Duff. = Status post successful ablation. Cleared for discharge by cardiology. Follow -up with cardiology as outpatient. Continue on Eliquis. //Hypertension -Patient does take sildenafil at home, will continue. Continue to monitor blood pressure trends. DVT prophylaxis: SCDs. Eliquis. D/w patient, patient's , bedside RN, Dr. Bender. Discussed Condition With: Patient, nurse Progress Note: Quality VTE Deep Vein Thrombosis/Pulmonary Embolism Present on Admission: No
[2018-04-20 12:22] VITALS: BP 124/69; PULSE 73; TEMP 98.4; O2SAT 97
--- NOTE | 2018-04-20 22:39 | ECG ---
Date Performed: 04/20/2018 Time Performed: 05:56:26 PTAGE: 68 years EKG: Sinus rhythm with borderline 1st degree A-V block Incomplete RBBB Borderline ECG PREVIOUS TRACING : 04/19/2018 22.24 DOCTOR: Amador Salinas Interpretating Date/Time 04/20/2018 22:38:23
--- NOTE | 2018-04-20 22:48 | ECG ---
Date Performed: 04/19/2018 Time Performed: 22:24:50 PTAGE: 68 years EKG: Sinus rhythm with borderline 1st degree A-V block Right bundle branch block Inferior T wave changes are nonspecif ic Abnormal ECG PREVIOUS TRACING : 04/18/2018 20.47 DOCTOR: Amador Salinas Interpretating Date/Time 04/20/2018 22:46:33
--- NOTE | 2018-04-20 23:14 | P.PN ---
Subjective Interval history: Feeling better Physical Exam Vital signs: Vital Signs 04/19/18 23:28 04/20/18 01:00 04/20/18 02:00 Temperature 98.4 F Pulse Rate 75 68 71 Respiratory Rate 20 Blood Pressure 105/68 103/70 92/56 L Pulse Oximetry 100 04/20/18 03:00 04/20/18 03:38 04/20/18 04:00 Temperature 97.7 F Pulse Rate 78 65 73 Respiratory Rate 20 Blood Pressure 96/57 L 111/68 Pulse Oximetry 100 04/20/18 04:38 04/20/18 05:38 04/20/18 06:00 Temperature Pulse Rate 66 62 62 Respiratory Rate Blood Pressure Pulse Oximetry 04/20/18 07:00 04/20/18 08:00 04/20/18 09:00 Temperature 98.6 F Pulse Rate 62 60 64 Respiratory Rate 18 Blood Pressure 114/70 Pulse Oximetry 98 04/20/18 10:00 04/20/18 11:00 04/20/18 12:00 Temperature 98.4 F Pulse Rate 74 74 73 Respiratory Rate 18 Blood Pressure 124/69 Pulse Oximetry 97 Intake & Output 04/20/18 04/20/18 04/21/18 06:59 18:59 06:59 Intake Total 240 / 240 Balance 240 / 240 Weight 78.6 kg Intake: Oral 240 / 240 Other: # Voids 1 - Constitutional no acute distress - Routine HEENT Exam Head: Present: normocephalic Eye: Present: PERRL ENT: Present: mucous membranes moist - Routine Cardiovascular Exam Present: RRR, S1, S2 - Routine Abdominal Exam Present: soft - Routine Neurological Exam Present: alert, oriented X3 - Detailed Neurological Exam: Coma Scale Eye Opening: Spontaneous Verbal Response: Oriented Motor Response: Obey commands Pepe Coma Scale Total: 15 Results - Labs CBC & Chem 7: 04/19/18 05:20 04/19/18 05:20 Assessment and Plan - Assessment (1) New onset atrial flutter Code(s): I48.92 - Unspecified atrial flutter Status: Acute - Plan SP ablation In sinus rhythm Doing well Feeling better Can be DH follow up in 3weeks.
== END 2018-04-20 12:27 | disposition home or self-care (01) ==
LOC: PHEDA 18:52 → PHED 18:52 → PH3 23:50 → HDIC 04-19 11:25 → HCIN 04-19 20:08
PROVIDERS: ADMIT Internal Medicine; ATTEND Internal Medicine
DX: R00.1 Bradycardia, unspecified; Z79.01 Long term (current) use of anticoagulants; I45.10 Unspecified right bundle-branch block; R00.2 Palpitations; I48.92 Unspecified atrial flutter; I10 Essential (primary) hypertension; Z79.899 Other long term (current) drug therapy
CPT/HCPCS: 71010; 71045; 80048; 80053; 82550; 82552; 84443; 84484; 85025; 85610; 85730; 86850; 86900; 86901; 93005; 93306; 93613; 93623; 93653; 99152; 99153; 99285; C1730; C1732; C2630; G0378; J1644; J1650; J2250; J2405; J3010; J7040